=== PATIENT | female | born 1945 ===

== ENCOUNTER 2018-02-13 09:25 | Outpatient (CLI) | payer OTHER ==
[~2018-02-13 09:25] MED LIST: AVANDIA4 MG PO; DIOVAN160 M1 PO; GLIPIZIDE5 MG PO; GLUCOPHAGE 1000; NORVASC5 MG PO; [UNRECOGNIZED DRUG - OTHER] MC
== END 2018-02-13 09:29 | disposition home or self-care (01) ==
LOC: MAMO-SONO 09:25
DX: Z12.31 Encounter for screening mammogram for malignant neoplasm of breast (principal); Z87.898 Personal history of other specified conditions; N64.89 Other specified disorders of breast; N81.3 Complete uterovaginal prolapse

== ENCOUNTER 2018-07-23 11:52 | Outpatient (CLI) | payer OTHER | END 2018-07-23 11:55 | disposition home or self-care (01) | LOC: RAD 11:52 | DX: M17.0 Bilateral primary osteoarthritis of knee (principal) ==

== ENCOUNTER → 2021-04-03 | Emergency (ER) | payer OTHER ==
[~2021-04-03] VITALS: Ht 162.6 cm; Wt 74.8 kg
== END | disposition home or self-care (01) ==
LOC: ER 12:58
DX: S00.83XA Contusion of other part of head, initial encounter (principal); S60.222A Contusion of left hand, initial encounter; S60.221A Contusion of right hand, initial encounter; S80.02XA Contusion of left knee, initial encounter; S80.01XA Contusion of right knee, initial encounter; W01.0XXA Fall on same level from slipping, tripping and stumbling without subsequent striking against object, initial encounter; Y92.019 Unspecified place in single-family (private) house as the place of occurrence of the external cause; E11.9 Type 2 diabetes mellitus without complications; Z79.84 Long term (current) use of oral hypoglycemic drugs